=== PATIENT | female | born 1945 | race Caucasian/White ===

== ENCOUNTER 2017-03-13 07:44 | Outpatient (CLI) | payer MEDICARE, BC ==
--- NOTE | 2017-03-13 10:59 | ULT ---
COMPLETE ABDOMINAL ULTRASOUND: History: Epigastric pain with nausea and vomiting that is relieved with milk. Technique: Multiplanar grayscale and color doppler images were obtained in a complete abdominal ultra sound. FINDINGS: The liver is increased in echogenicity without focal lesion or intrahepatic ductal dilatation. The ga llbladder is normal without stones, sludge, gallbladder wall thickening, or pericholecystic fluid. The common bile duct is normal measuring 6 mm. The visualized portions of the pancreas are unremarkable. The aorta and inferior vena cava are normal in caliber. The spleen is normal in echogenicity without focal lesions and measures 7.6 cm in length . Left kidney is normal in echogenicity without hydronephrosis or calculi and measures 10.6 and 9.8 cm in length on the right and left, respectively. IMPRESSION: Fatty liver. POS: [facility]
== END 2017-03-13 07:45 | disposition home or self-care (01) ==
LOC: ULT 07:44
PROVIDERS: ATTEND Internal Medicine Gastroenterology
DX: R10.9 Unspecified abdominal pain (principal); K76.0 Fatty (change of) liver, not elsewhere classified
CPT/HCPCS: 76700

== ENCOUNTER 2017-03-20 06:10 | Day surgery (SDC) | payer MEDICARE, BC ==
[2017-03-19 13:09] VITALS: BMI 23.5
--- NOTE | 2017-03-20 06:08 | HP ---
DATE OF ADMISSION: 03/20/2017 HISTORY OF PRESENT ILLNESS: Mr. Afsaneh Ryan is a very pleasant 72-year-old female seen in my office with abdominal pain and nausea. The patient had abdominal pain over the last several months. The p ain is over the epigastric area. The patient has severe acid reflux and is already on omeprazole 40 once a day, the patient's abdominal pain persists. The patient has a history of difficulty swallowin g off and on, the difficutly occurs mostly to bread and meat. She at times has to drink water to jamaal e it go down. Her bowel movements are regular. No history of any rectal bleeding. The patient has a history of colon polyp and also family history of colon cancer. The patient comes for an EGD becau se of abdominal pain, dysphagia and also history of colon polyp. ALLERGIES: None. SOCIAL HISTORY: Former smoker. She drinks alcohol socially. MEDICAL ILLNESSES: 1. Hypertension. 2. Hyperlipidemia. 3. Chronic acid reflux. 4. Colon polyp. 5. Status post breast biopsy. 6. Status post right knee replacement. PHYSICAL EXAMINATION: GENERAL: Patient is thin built, appears comfortable. VITAL SIGNS: Pulse is 70, blood pressure 130/80. HEENT: Conjunctivae clear. CARDIOVASCULAR: First and second heart sounds normal. LUNGS: Clear to auscultation. ABDOMEN: Soft to palpate. No organomegaly. No tenderness. No masses. ADMITTING DIAGNOSES: 1. Abdominal pain, dysphagia. 2. Colon polyp. PLAN: EGD and colonoscopy.
--- NOTE | 2017-03-20 09:44 | CT ---
CT CHEST NONCONTRAST: History: Mass. EGD. Patient refused IV contrast. FINDINGS: Lungs are hyperinflated. No pleural fluid or pneumothorax are apparent. Lack of IV contrast limits evaluation of the mediastinum. A small amount of gas surrounds the lower e sophagus and the small hiatal hernia. There is circumferential wall thickening involving the distal e sophagus. No free fluid is apparent. There is calcification of the arterial structures. Bovine origin of the great vessels from the aortic arch is evident. IMPRESSION: 1. Pneumomediastinum involving the lower esophagus around the circumferentially wall thickened distal esophagus and the small hiatal hernia. 2. Atherosclerosis. 3. COPD. Findings were called to Dr. Spencer at 0933 hours. Code CR POS: [facility]
--- NOTE | 2017-03-21 15:14 | OP ---
DATE OF PROCEDURE: 03/20/2017 OPERATIVE PROCEDURE: Colonoscopy. PREOPERATIVE DIAGNOSES: A 72-year-old female with history of colon polyp and family histor y of colon cancer. Her last colonoscopy was done 5 years ago. The patient is undergoing followup co lonoscopy. POSTOPERATIVE DIAGNOSES: 1. Right-sided diverticular disease. 2. Otherwise normal colonoscopy. PROCEDURE IN DETAIL: The patient was placed on her left lateral position and was given sedation by A nesthesia Department. A rectal exam was done before the scope was advanced into the rectum. No lesi ons were felt on rectal exam. A Pentax video colonoscope was introduced into the rectum and advanced all the way into the cecum. The appendical opening, ileocecal valve, and cecum, no pathology seen. The patient had diverticulosis over the right colon, ascending colon, hepatic flexure. The transver se colon, splenic flexure, descending colon, no pathology seen. The sigmoid colon again showed occas ional diverticula. Rectum showed no pathology.
--- NOTE | 2017-03-22 01:13 | OP ---
DATE OF PROCEDURE: 03/20/2017 OPERATIVE PROCEDURES: 1. Esophagogastroduodenoscopy with biopsy. 2. Esophageal dilation to stage I for 2 minutes. PREOPERATIVE DIAGNOSES: Dysphagia, weight loss. POSTOPERATIVE DIAGNOSES: 1. Circumferential ulceration with what appears to be a polypoid lesion in the distal esophagus with a tight stricture. 2. Small hiatus hernia. 3. Otherwise, normal exam. PROCEDURE IN DETAIL: The patient was placed on her left lateral position and was given sedation by A nesthesia Department. A Pentax video gastroscope under direct vision was passed through the orophary nx into the stomach. Over the distal esophagus, the patient was found to have circumferential ulcera tion with polypoid-appearing mucosa. The lumen was very tight. The scope could not be advanced past into the stomach. A Bard balloon size 15-18 mm placed through the GE junction was inflated to stage I for 2 minutes. This was repeated one more time. After dilations, this lumen did open very easily . The scope was advanced into the stomach. She has a small hiatus hernia. The fundus and cardia, n o pathology seen. The gastric body, gastric antrum, no pathology seen. The duodenal bulb and descen ding duodenum, no pathology seen. The scope was withdrawn back into the esophagus. Multiple biopsie s were obtained. The stomach was decompressed and the scope removed. DISCHARGE PLANNING: This is a 72-year-old female with dysphagia, weight loss and history o f colon polyp. EGD showed a very tight stricture, distal esophagus ulceration, and also a polypoid l esion. The findings are suggestive of esophageal . The patient underwent EGD and biopsies. Sh e also had dilation of the colon. She underwent colonoscopy, which was negative. DISCHARGE RECOMMENDATIONS: 1. The patient was advised to call me if she develops any abdominal pain, chest discomfort, fever, h ematochezia, or melena. 2. Will plan to obtain CAT scan before discharge to see if she has any metastatic disease. 3. Repeat EGD and dilation in next week.
== END 2017-03-20 10:01 | disposition home or self-care (01) ==
LOC: SDC 06:10
PROVIDERS: ATTEND Internal Medicine Gastroenterology
PROC: 0D748ZZ Dilation of Esophagogastric Junction, Via Natural or Artificial Opening Endoscopic (ICD-10-PCS; principal; 2017-03-20)
PROC: 0DB58ZX Excision of Esophagus, Via Natural or Artificial Opening Endoscopic, Diagnostic (ICD-10-PCS; 2017-03-20)
PROC: 0DJD8ZZ Inspection of Lower Intestinal Tract, Via Natural or Artificial Opening Endoscopic (ICD-10-PCS; 2017-03-20)
DX: K21.0 Gastro-esophageal reflux disease with esophagitis (principal); K22.10 Ulcer of esophagus without bleeding; K44.9 Diaphragmatic hernia without obstruction or gangrene; K57.30 Diverticulosis of large intestine without perforation or abscess without bleeding; I10 Essential (primary) hypertension; E78.5 Hyperlipidemia, unspecified; Z87.891 Personal history of nicotine dependence; Z86.010 Personal history of colon polyps; Z80.0 Family history of malignant neoplasm of digestive organs; Z79.82 Long term (current) use of aspirin; Z79.1 Long term (current) use of non-steroidal anti-inflammatories (NSAID); Z79.899 Other long term (current) drug therapy; Z96.651 Presence of right artificial knee joint; Z98.890 Other specified postprocedural states
CPT/HCPCS: 36415; 71250; 74220; 82565; 88305; 88312; 88313

== ENCOUNTER 2017-04-03 06:36 | Day surgery (SDC) | payer MEDICARE, BC ==
[2017-04-02 15:46] VITALS: BMI 23.5
--- NOTE | 2017-04-03 06:13 | HP ---
HISTORY OF PRESENT ILLNESS: This is a 72-year-old female with dysphagia, weight loss. She underwent EGD and was found to have ulcerative polypoid area over distal esophageal stricture. She underwent dilation. Biopsies of the esophagus__ was non cancerous. However, the biopsy came back negative for malignancy. After dilation, she was actually eating better. The patient is brought in for repeat EGD and biopsy of the distal esophagus and the suspicion of possible malignancy. ALLERGIES: None. MEDICAL ILLNESSES: 1. Hypertension. 2. Hyperlipidemia. 3. Colon polyp. 4. Erosive esophagitis. 5. Depression or anxiety. PHYSICAL EXAMINATION: GENERAL: The patient appears comfortable. VITAL SIGNS: Pulse is 70, blood pressure 130/80. HEENT: Conjunctivae clear. CARDIOVASCULAR: Within normal limits. ABDOMEN: Soft to palpate. No organomegaly. No tenderness. No masses. ADMITTING DIAGNOSIS: Dysphagia, esophageal stricture. She is status post dilation two weeks ago. The patient was brought in today for repeat esophagogastroduodenoscopy and biopsy. [facility]
[2017-04-03] MEDS ORDERED: Fentanyl 100 MCG/2 ML VIAL ONE (08:08)
[2017-04-03 10:04] LABS: Anion Gap 10 mmol/L (10-20); BUN (Urea Nitrogen) 16 mg/dL (9.8-20.1); Calc. Creatinine Clearance 70 mL/min (70-130); Calcium 10.2 mg/dL (7.8-10.44); Carbon Dioxide 33 mmol/L (23-31); Chloride 103 mmol/L (98-107); Estimated GFR-MDRD 81; Glucose 102 mg/dL (83-110); Potassium 3.9 mmol/L (3.5-5.1); Sodium 142 mmol/L (136-145)
[2017-04-03] MEDS ORDERED: Propofol 200 MG/20 ML VIAL ONE (15:47)
[2017-04-03] MEDS ORDERED: Lidocaine 1% PF 5 ML VIAL ONE (15:47)
--- NOTE | 2017-04-04 06:25 | OP ---
DATE OF SURGERY: 04/03/2017 OPERATIVE PROCEDURES: 1. Esophagogastroduodenoscopy with biopsy. 2. Esophageal dilation with balloon size 15-18 mm to stage II for 2 minutes. PREOPERATIVE DIAGNOSES: 1. Dysphagia and weight loss. 2. Esophageal stricture, dilation two weeks ago. POSTOPERATIVE DIAGNOSES: 1. Friable necrotic appearing distal esophagus with a ring like stricture. 2. Retained food material at the gastroesophageal junction, which would account for worsening dysphagia. PROCEDURE IN DETAIL: The patient was placed on her left lateral position and the throat was anesthetized with Cetacaine spray and the patient given sedation by Anesthesia Department. A Pentax video gastroscope under direct vision was passed down the oropharynx, past the upper esophageal sphincter into the distal esophagus. The patient was found to have what appears to be food impaction at the distal esophagus. The patient's food impaction just above the stricture. Also, the mucosa appears friable, edematous, necrotic appearing. The food bolus was tried to suction out, but it could not be done. Subsequently, a Bard balloon size 15-18 mm placed at the GE junction. The balloon was inflated to stage I for 2 minutes and to stage II for 2 minutes. Following dilation, the esophageal lumen open and the food bolus went down. The distal esophagus is necrotic friable. Does not appear to be a benign stricture. However, the initial biopsy 2 weeks ago was negative for any malignancy. We took biopsies from the distal esophagus. Retroflexion failed to show any lesions in the fundus or cardia. The gastric body, gastric antrum, duodenum, no pathology seen. There was some friability and mild oozing of blood, no complications noted. Before the scope was pulled out, again the GE junction exam was made. No pathology seen. The neck was palpitated and also chest wall was palpitated. No subcutaneous emphysema noted. The stomach was decompressed and the scope removed. DISCHARGE PLANNING: This is a 72-year-old female who came in for EGD and dilation. The esophageal lumen is tight again. She also had a foreign body in esophagus passed down after the dilation. The initial biopsy was negative for any malignancy. . The patient is advised on a liquid diet today, and we will plan for abdomen and chest CT scan in the near future with contrast. The patient was advised to call me if she develops any fever, chest discomfort, hematemesis or melena. [facility]
== END 2017-04-03 09:25 | disposition home or self-care (01) ==
LOC: SDC 06:36
PROVIDERS: ATTEND Internal Medicine Gastroenterology
PROC: 0D758ZZ Dilation of Esophagus, Via Natural or Artificial Opening Endoscopic (ICD-10-PCS; principal; 2017-04-03)
DX: K22.10 Ulcer of esophagus without bleeding (principal); K22.2 Esophageal obstruction; I10 Essential (primary) hypertension; E78.5 Hyperlipidemia, unspecified; F32.9 Major depressive disorder, single episode, unspecified; F41.9 Anxiety disorder, unspecified
CPT/HCPCS: 36415; 80048; 88305; 88312; 88313; J2001; J2704; J3010

== ENCOUNTER 2017-04-08 10:54 | Outpatient (CLI) | payer MEDICARE, BC ==
[2017-04-08] MEDS ORDERED: Iopamidol 370 76% 100 ML VIAL ONE (11:12)
--- NOTE | 2017-04-08 13:26 | CT ---
CT OF CHEST AND ABDOMEN PERFORMED WITH INTRAVENOUS CONTRAST ENHANCEMENT: HISTORY: Weight loss, esophageal obstruction, epigastric pain. COMPARISON: A 03/20/17 exam. FINDINGS: The lungs are clear of any infiltrative process. No pulmonary nodules identified. Thoracic aorta is normal in caliber. No significant mediastinal or hilar lymphadenopathy. The dista l esophageal wall thickening is again demonstrated and hiatal hernia is seen. The air around the dis tonya esophagus seen on the prior examination has resolved. CT OF ABDOMEN PERFORMED WITH CONTRAST ENHANCEMENT: The liver, spleen, pancreas, and gallbladder regions appear unremarkable. Right and left adrenal glands and right and left kidneys are normal in size and appearance. No signi ficant periaortic or mesenteric adenopathy. Small nodule, which is probably a small lymph node, is s een directly anterior to the body of the pancreas. It measures 8 mm in size and is stable. IMPRESSION: 1. Distal esophageal wall thickening with a hiatal hernia. Air within the pneumomediastinum noted o n the previous examination has resolved. 2. Small peripancreatic lymph node anterior to the body of the pancreas measuring 7 mm in short axis dimension. POS: [facility]
== END 2017-04-08 10:55 | disposition home or self-care (01) ==
LOC: CT 10:54
PROVIDERS: ATTEND Internal Medicine Gastroenterology
DX: R13.10 Dysphagia, unspecified (principal); R63.4 Abnormal weight loss; K44.9 Diaphragmatic hernia without obstruction or gangrene
CPT/HCPCS: 71260; 74160

== ENCOUNTER 2017-06-28 11:39 | Outpatient (CLI) | payer MEDICARE, BC | END 2017-06-28 11:40 | disposition home or self-care (01) | LOC: BICRAD 11:39 | PROVIDERS: ATTEND Internal Medicine Gastroenterology | DX: K21.9 Gastro-esophageal reflux disease without esophagitis (principal); Z98.890 Other specified postprocedural states | CPT/HCPCS: 71046 ==

== ENCOUNTER 2017-08-27 12:19 | Outpatient (CLI) | payer MEDICARE, BC | END 2017-08-27 12:20 | disposition home or self-care (01) | LOC: BICMAMMO 12:19 | PROVIDERS: ATTEND Obstetrics & Gynecology | DX: Z12.31 Encounter for screening mammogram for malignant neoplasm of breast (principal) | CPT/HCPCS: 77063; 77067 ==

== ENCOUNTER 2018-06-10 07:05 | Day surgery (SDC) | payer MEDICARE, BC ==
[2018-06-09 16:57] VITALS: BMI 24.0
--- NOTE | 2018-06-10 01:57 | HP ---
HISTORY OF PRESENT ILLNESS: This is a 73-year-old female with reflux esophagitis, peptic stricture. The patient had a thick fibrotic stricture multiple biopsies of the area shows no malignancy. She did have severe erosive esophagitis in 2018. She was sent to [place] for repeat dilation and has had a stent placement temporarily for a few months. The stent was removed subsequently and has had multiple balloon dilation. The patient done well over the last several months without any symptoms. She is on budesonide 6 mg once a day. The patient comes for an EGD and possible dilation today. ALLERGIES: NONE. PAST MEDICAL HISTORY: 1. Hypertension. 2. Chronic acid reflux. 3. Esophageal stricture, status post esophageal dilation. 4. Hyperlipidemia. 5. Anxiety. 6. Osteoarthritis. PHYSICAL EXAMINATION: VITAL SIGNS: Pulse is 70, blood pressure 140/70. HEENT: Conjunctivae clear. CARDIOVASCULAR: First and second heart sounds heard. LUNGS: Clear to auscultation. ABDOMEN: Soft. No organomegaly. No tenderness. No masses. EXTREMITIES: Reveal no edema. ADMITTING DIAGNOSES: This is a 73-year-old female with erosive esophagitis, tight esophageal stricture. The patient has had multiple_ dilations in the past and also has had a history of a stent placement and subsequent removal. The patient underwent EGD and possible dilation. Job ID: [id number] [facility]
--- NOTE | 2018-06-10 12:24 | OP ---
DATE OF PROCEDURE: 06/10/2018 PROCEDURES PERFORMED: 1. Esophagogastroduodenoscopy. 2. Esophageal dilation with Huff size 12 and 14.8 cm. PREOPERATIVE DIAGNOSES: 1. Chronic esophagitis. 2. Esophageal stricture. 3. Dysphagia. POSTOPERATIVE DIAGNOSES: 1. Ring-like esophageal stricture at the gastroesophageal junction with mild esophagitis. 2. Hiatus hernia. DESCRIPTION OF PROCEDURE: The patient was placed on her left lateral position and was given sedation by Anesthesia Department. A Pentax video gastroscope under direct vision passed down the oropharynx, past the upper esophageal sphincter into the esophagus. The mucosa appears normal over the upper two-thirds. Over the distal esophagus, there is some focal edema and erythema. The patient had a ring-like stricture at the GE junction. The scope could not be advanced past the GE junction. The esophageal guidewire was placed into the stomach under endoscopic control. The scope was removed. Subsequently, a Savary dilation done with a 12-Palestinian and also 14-Palestinian in diameter. There was very minimal resistance encountered with passive dilator. Post dilatation, the guidewire and dilator were removed. The patient was re-scoped again. There was a mucosal tear at the GE junction indicative of successful dilation. She was found to have hiatus hernia. Retroflexion failed to show any pathology in fundus and cardia. The gastric body, gastric antrum, and duodenum; no pathology. The stomach was decompressed and the scope removed. DISCHARGE RECOMMENDATIONS: 1. The patient advised to call me if she develops chest pain, hematemesis, or fever. 2. Continue omeprazole and Budesonide as before. 3. To come back to clinic in 2 weeks. Job ID: [id number] [facility]
[2018-06-10] MEDS ORDERED: Lidocaine 1% PF 5 ML VIAL ONE (13:56)
[2018-06-10] MEDS ORDERED: PROPOFOL 200 MG/20 ML VIAL ONE (13:56)
== END 2018-06-10 10:08 | disposition home or self-care (01) ==
LOC: SDC 07:05
PROVIDERS: ATTEND Internal Medicine Gastroenterology
PROC: 0D758ZZ Dilation of Esophagus, Via Natural or Artificial Opening Endoscopic (ICD-10-PCS; principal; 2018-06-10)
DX: K22.2 Esophageal obstruction (principal); K20.9 Esophagitis, unspecified; K44.9 Diaphragmatic hernia without obstruction or gangrene; K21.9 Gastro-esophageal reflux disease without esophagitis; M17.11 Unilateral primary osteoarthritis, right knee; F41.9 Anxiety disorder, unspecified; Z87.891 Personal history of nicotine dependence; Z98.890 Other specified postprocedural states; Z79.52 Long term (current) use of systemic steroids; Z79.82 Long term (current) use of aspirin; Z79.899 Other long term (current) drug therapy
CPT/HCPCS: J2001; J2704

== ENCOUNTER 2018-09-01 08:44 | Outpatient (CLI) | payer MEDICARE, BC ==
--- NOTE | 2018-09-01 09:42 | MMO ---
Bilateral MAMMO Bilat Screen [facility]. CLINICAL HISTORY: Patient is 73 years old and is seen for screening. The patient has no family history of breast cancer. The patient has no personal history of cancer. VIEWS: The views performed were: bilateral craniocaudal with tomosynthesis and bilateral mediolateral oblique with tomosynthesis. FILMS COMPARED: The present examination has been compared to prior imaging studies performed at [facility] on 06/10/2014, 06/14/2015, 08/03/2016 and 08/27/2017. MAMMOGRAM FINDINGS: There are scattered fibroglandular densities. There are stable benign appearing calcifications seen in both breasts. There are no suspicious masses, suspicious calcifications, or new areas of architectural distortion. IMPRESSION: THERE IS NO MAMMOGRAPHIC EVIDENCE OF MALIGNANCY. A ROUTINE FOLLOW-UP MAMMOGRAM IN 1 YEAR IS RECOMMENDED. THE RESULTS OF THIS EXAM WERE SENT TO THE PATIENT. ACR BI-RADS Category 2 - Benign finding MAMMOGRAPHY NOTE: 1. A negative mammogram report should not delay a biopsy if a dominant of clinically suspicious mass is present. 2. Approximately 10% to 15% of breast cancers are not detected by mammography. 3. Adenosis and dense breasts may obscure an underlying neoplasm.
== END 2018-09-01 08:45 | disposition home or self-care (01) ==
LOC: BICMAMMO 08:44
PROVIDERS: ATTEND Obstetrics & Gynecology
DX: Z12.31 Encounter for screening mammogram for malignant neoplasm of breast (principal)
CPT/HCPCS: 77063; 77067

== ENCOUNTER 2020-09-14 13:19 | Outpatient (CLI) | payer MEDICARE, BC | END 2020-09-14 13:20 | disposition home or self-care (01) | LOC: BICMAMMO 13:19 | PROVIDERS: ATTEND Obstetrics & Gynecology | DX: Z12.31 Encounter for screening mammogram for malignant neoplasm of breast (principal) | CPT/HCPCS: 77063; 77067 ==

== ENCOUNTER 2021-10-03 11:31 | Outpatient (CLI) | payer MEDICARE, BC | END 2021-10-03 11:32 | disposition home or self-care (01) | LOC: BICMAMMO 11:31 | PROVIDERS: ATTEND Obstetrics & Gynecology | DX: Z12.31 Encounter for screening mammogram for malignant neoplasm of breast (principal); N63.20 Unspecified lump in the left breast, unspecified quadrant | CPT/HCPCS: 77063; 77067 ==

== ENCOUNTER 2021-10-10 08:43 | Outpatient (CLI) | payer MEDICARE, BC | END 2021-10-10 08:44 | disposition home or self-care (01) | LOC: BICULT 08:43 | PROVIDERS: ATTEND Obstetrics & Gynecology | DX: R92.8 Other abnormal and inconclusive findings on diagnostic imaging of breast (principal) ==

== ENCOUNTER 2022-11-05 13:14 | Outpatient (CLI) | payer MEDICARE, BC | END 2022-11-05 13:15 | disposition home or self-care (01) | LOC: BICMAMMO 13:14 | PROVIDERS: ATTEND Obstetrics & Gynecology | DX: Z12.31 Encounter for screening mammogram for malignant neoplasm of breast (principal); Z91.89 Other specified personal risk factors, not elsewhere classified | CPT/HCPCS: 77063; 77067 ==